=== PATIENT | female | born 1965 | race Caucasian/White ===

== ENCOUNTER → 2016-10-25 | Outpatient (CLI) | payer OTHER | LOC: CIMAGING 08:47 | PROVIDERS: ATTEND Family Medicine | DX: Z12.31 Encounter for screening mammogram for malignant neoplasm of breast (principal) | CPT/HCPCS: G0202 ==

== ENCOUNTER → 2017-08-08 | Outpatient (CLI) | payer OTHER | LOC: CIMAGING 16:36 | PROVIDERS: ATTEND Podiatrist | DX: M25.572 Pain in left ankle and joints of left foot (principal) | CPT/HCPCS: 73610-PO ==

== ENCOUNTER → 2017-10-31 | Outpatient (CLI) | payer OTHER | LOC: CIMAGING 08:36 | PROVIDERS: ATTEND Nurse Practitioner Women's Health | DX: Z12.31 Encounter for screening mammogram for malignant neoplasm of breast (principal) ==